=== PATIENT | female | born 1945 | race Caucasian/White ===

== ENCOUNTER 2020-06-11 06:18 | Day surgery (SDC) | payer MEDICARE, OTHER ==
[~2020-06-11] VITALS: Ht 177.8 cm; Wt 67.5 kg
[~2020-06-11 06:18] MED LIST: ACET325; ACET500 PO; Advair Hfa 230-12 GM; BISA5EC PO; BUDE6HFA; CYCL10; CYCL10 PO; DIGO.125 PO; ESTR2 PO; GEMF600 PO; HYDACE5 PO; MAGCIT300 PO; MELATONIN5 M1 PO; METCAR500 PO; MOM PO; Milk Of Ma400 MG/5 M; Prilosec20 MG PO; REFRESH P M O RIGHTEYE; Z PACK; Zanaflex4 M1; [UNRECOGNIZED DRUG - REMARK]
[2020-06-11] MEDS ORDERED: INCRUSE ELPT INH 62. (06:55)
[2020-06-11] MEDS ORDERED: AMLODIPINE BESY10 MG PO (06:56)
[2020-06-11] MEDS ORDERED: LISINOPRIL (06:56)
--- NOTE | 2020-06-11 07:12 | NUR ---
Ambulatory in Day Surgery History, Chart, Medications and Allergies reviewed before start of procedure. Lungs clear T/O to Auscultation. Patient confirms NPO status and agrees with scheduled surgery. Patient States Post-Procedure ride home has been arranged. REPORTS USING [facility] THIS AM PER ORDERS.
--- NOTE | 2020-06-11 10:00 | NUR ---
06/11/20 Precious García 1% LIDOCAINE WITH EPI 1:100,00 INCONJUCTION WITH .25% BUPIVICAINE. ALL COUNTS CORRECT.
--- NOTE | 2020-06-11 10:57 | NUR ---
PATIENT WEARING DISPOSABLE UNDERWEAR WITH GUAZE TO SURGICAL SITE. NO VISIBLE DRAINAGE NOTED. PATIENT UP TO BR TO VOID. GAIT IS STEADY.
--- NOTE | 2020-06-11 11:23 | NUR ---
1115- VSS. NO C/O. Discharge instructions reviewed with patient. Patient verbalizes understanding. Copy given to patient to take home. Confirmed with patients friend/roomate, Angel, that he would be driving the patient home.
== END 2020-06-11 11:17 | disposition home or self-care (01) ==
LOC: ORSCMMR 06:18 → ORD 08:15 → ORSCMMR 08:15
PROVIDERS: Surgery
PROC: 06BY0ZC Excision of Hemorrhoidal Plexus, Open Approach (ICD-10-PCS; principal; 2020-06-11 08:15)
DX: K64.2 Third degree hemorrhoids (principal); I10 Essential (primary) hypertension; I48.91 Unspecified atrial fibrillation; J44.9 Chronic obstructive pulmonary disease, unspecified; F17.210 Nicotine dependence, cigarettes, uncomplicated; K21.9 Gastro-esophageal reflux disease without esophagitis; E78.5 Hyperlipidemia, unspecified; Z79.899 Other long term (current) drug therapy
CPT/HCPCS: 88304; J1100; J2250; J2370; J2405; J2704; J3010; J7120

== ENCOUNTER 2021-05-16 08:14 | Day surgery (SDC) | payer MEDICARE, OTHER ==
[~2021-05-16] VITALS: Ht 177.8 cm; Wt 64.6 kg
[~2021-05-16 08:14] MED LIST changes: +AMLODIPINE BESY10 MG PO; +INCRUSE ELPT INH 62.; +LISINOPRIL
[2021-05-16] MEDS ORDERED: CLIMARA1 EACH (09:36)
--- NOTE | 2021-05-16 09:38 | NUR ---
05/16/21 0938 Charo Leyva FIRST ATTEMPT BLEW. SECOND ATTEMPT SUCCESS.
== END 2021-05-16 11:50 | disposition home or self-care (01) ==
LOC: ORSCSDS 08:14
PROVIDERS: Internal Medicine Gastroenterology
PROC: 0DBP8ZX Excision of Rectum, Via Natural or Artificial Opening Endoscopic, Diagnostic (ICD-10-PCS; principal; 2021-05-16 10:15)
PROC: 0DBK8ZX Excision of Ascending Colon, Via Natural or Artificial Opening Endoscopic, Diagnostic (ICD-10-PCS; principal; 2021-05-16 10:15)
PROC: 0DBL8ZX Excision of Transverse Colon, Via Natural or Artificial Opening Endoscopic, Diagnostic (ICD-10-PCS; principal; 2021-05-16 10:15)
DX: R19.5 Other fecal abnormalities (principal); Z86.010 Personal history of colon polyps; D12.2 Benign neoplasm of ascending colon; D12.3 Benign neoplasm of transverse colon; K62.1 Rectal polyp; K57.30 Diverticulosis of large intestine without perforation or abscess without bleeding; I10 Essential (primary) hypertension; J44.9 Chronic obstructive pulmonary disease, unspecified; K21.9 Gastro-esophageal reflux disease without esophagitis; F17.210 Nicotine dependence, cigarettes, uncomplicated; Z79.899 Other long term (current) drug therapy
CPT/HCPCS: 88305; J2405; J2704; J7120

== ENCOUNTER → 2022-04-10 | Outpatient (CLI) | payer MEDICARE, OTHER ==
[~2022-04-10] MED LIST changes: +CLIMARA1 EACH
[2022-04-10 19:40] LABS: Bacteria Few /hpf; Red Blood Cells, Urine 0-2 /hpf (0-2); Squamous Epithelial Cells Few /hpf (Few); White Blood Cells, Urine 0-2 /hpf (0-5)
== END | disposition home or self-care (01) ==
LOC: LAB SHORT 17:52
PROVIDERS: Family Medicine
DX: F44.89 Other dissociative and conversion disorders (principal)
CPT/HCPCS: 81015; 87086

== ENCOUNTER 2024-03-15 10:03 | Day surgery (SDC) | payer MEDICARE ==
[~2024-03-15] VITALS: Ht 177.8 cm; Wt 60.9 kg
[~2024-03-15 10:03] MED LIST changes: +Balanced Salt Epinephrine Irrigation Solution 500 mL IR SCH; +Lidocaine HCl/Pf 1% 5 ML VIAL XX SCH; +Moxifloxacin HCL 0.5 MG/0.1 ML 0.4MLSYR RIGHTEYE SCH; +PHENYLEPHRINE\\TROPICAMIDE\\TETRACAINE OPHTHALMIC DILATING SOLN RIGHTEYE PRN; +Povidone-Iodine 450 DROP/30 ML Solution ONE; +Povidone-Iodine 450 DROP/30 ML Solution RIGHTEYE SCH; +Tetracaine HCl/Pf 0.5% Opth Soln 4 ml ONE; +Triamcinolone Inj Susp 40 MG / ML 1ML Vial INJ SCH; +Triamcinolone Inj Susp 40 MG / ML 1ML Vial ONE
[2024-03-15] MEDS ORDERED: Diazepam 2 MG Tab ONE (10:07)
[2024-03-15] MEDS ORDERED: Diazepam 5 MG Tab ONE (10:07)
[2024-03-15] MEDS ORDERED: ELIQUIS5 M3 PO (10:21)
[2024-03-15] MEDS ORDERED: AMLODIPINE BESYL5 MG PO (10:22)
[2024-03-15] MEDS ORDERED: VENTOLIN HFA AER (10:23)
[2024-03-15] MEDS ORDERED: NS 500 ML IV ONE (10:25)
[2024-03-15] MEDS ORDERED: FentaNYL Citrate 50 MCG/ML 2 ML Injection ONE (10:53)
[2024-03-15] MEDS ORDERED: Midazolam HCl 1MG / ML 2ML Vial ONE (10:53)
[2024-03-15 11:39] VITALS: BP 174/88
== END 2024-03-15 11:53 | disposition home or self-care (01) ==
LOC: ORSCSDS 10:03
PROVIDERS: Ophthalmology
PROC: 08RJ3JZ Replacement of Right Lens with Synthetic Substitute, Percutaneous Approach (ICD-10-PCS; principal; 2024-03-15 11:30)
DX: H25.813 Combined forms of age-related cataract, bilateral (principal); I48.91 Unspecified atrial fibrillation; I10 Essential (primary) hypertension; K21.9 Gastro-esophageal reflux disease without esophagitis; E78.5 Hyperlipidemia, unspecified; F17.210 Nicotine dependence, cigarettes, uncomplicated; J44.9 Chronic obstructive pulmonary disease, unspecified; Z79.01 Long term (current) use of anticoagulants; Z79.899 Other long term (current) drug therapy
CPT/HCPCS: A9270; J2250; J3010; J3301; V2632

== ENCOUNTER 2024-03-23 09:46 | Day surgery (SDC) | payer MEDICARE ==
[~2024-03-23] VITALS: Ht 177.8 cm; Wt 61.4 kg
[~2024-03-23 09:46] MED LIST changes: +AMLODIPINE BESYL5 MG PO; +ELIQUIS5 M3 PO; +Moxifloxacin HCL 0.5 MG/0.1 ML 0.4MLSYR LEFTEYE SCH; -Moxifloxacin HCL 0.5 MG/0.1 ML 0.4MLSYR RIGHTEYE SCH; +PHENYLEPHRINE\\TROPICAMIDE\\TETRACAINE OPHTHALMIC DILATING SOLN LEFTEYE PRN; -PHENYLEPHRINE\\TROPICAMIDE\\TETRACAINE OPHTHALMIC DILATING SOLN RIGHTEYE PRN; +Povidone-Iodine 450 DROP/30 ML Solution LEFTEYE SCH; -Povidone-Iodine 450 DROP/30 ML Solution RIGHTEYE SCH; +VENTOLIN HFA AER
[2024-03-23] MEDS ORDERED: METO25ER PO (10:22)
[2024-03-23] MEDS ORDERED: LISI20 PO (10:22)
[2024-03-23] MEDS ORDERED: ALBU8HFA2 INH (10:23)
[2024-03-23] MEDS ORDERED: ELIQUIS5 M3 PO (10:23)
[2024-03-23] MEDS ORDERED: BREO ELLIPTA 11 EAC1 IH (10:23)
[2024-03-23] MEDS ORDERED: FentaNYL Citrate 50 MCG/ML 2 ML Injection ONE (11:08)
[2024-03-23] MEDS ORDERED: Midazolam HCl 1MG / ML 2ML Vial ONE (11:08)
[2024-03-23 12:08] VITALS: BP 166/99
== END 2024-03-23 12:00 | disposition home or self-care (01) ==
LOC: ORSCSDS 09:46
PROVIDERS: Ophthalmology
PROC: 08RK3JZ Replacement of Left Lens with Synthetic Substitute, Percutaneous Approach (ICD-10-PCS; principal; 2024-03-23 11:30)
DX: H25.812 Combined forms of age-related cataract, left eye (principal); Z96.1 Presence of intraocular lens; I48.91 Unspecified atrial fibrillation; H35.89 Other specified retinal disorders; E78.5 Hyperlipidemia, unspecified; I10 Essential (primary) hypertension; J44.9 Chronic obstructive pulmonary disease, unspecified; K21.9 Gastro-esophageal reflux disease without esophagitis; F17.210 Nicotine dependence, cigarettes, uncomplicated; Z79.01 Long term (current) use of anticoagulants; Z79.899 Other long term (current) drug therapy
CPT/HCPCS: J2250; J3010; J3301; V2632